=== PATIENT | male | born 1960 | race Caucasian/White ===

== ENCOUNTER 2020-11-03 11:26 | Emergency (ER) | payer BC ==
[~2020-11-03] VITALS: Ht 177.8 cm; Wt 111.1 kg
[2020-11-03] MEDS ORDERED: LEVOTHYROXINE25 MC1 PO (11:39)
[2020-11-03] MEDS ORDERED: LISINOPRIL20 MG PO (11:39)
--- NOTE | 2020-11-03 16:57 | EKG ---
[facility] [address] [facility] [place] [address] Signed Normal sinus rhythm Normal ECG No previous ECGs available Confirmed by DELFINA DUPREE MD ([id number] on 11/03/2020 4:57:33 PM Electronically Signed By: DELFINA DUPREE MD 11/03/20 1657 PATIENT NAME: MARGARITA BECK Electrocardiogram DATE OF : 62 PHYSICIAN: DELFINA DUPREE MD REPORT #: [id number] REPORT IS CONFIDENTIAL AND NOT TO BE RELEASED WITHOUT AUTHORIZATION
[2020-11-03] MEDS ORDERED: ONDANSETRON ODT8 MG PO (17:11)
== END 2020-11-03 17:33 | disposition home or self-care (01) ==
LOC: ED 11:26
DX: U07.1 COVID-19 (principal); K52.9 Noninfective gastroenteritis and colitis, unspecified; I10 Essential (primary) hypertension; G47.33 Obstructive sleep apnea (adult) (pediatric); Z79.899 Other long term (current) drug therapy
CPT/HCPCS: 74177; 76705; 80053; 83690; 84484; 85025; 93005; 93010; 99284-25; C9803; J7030; Q9967; U0003